=== PATIENT | male | born 2000 | race Two or more races ===

== ENCOUNTER 2024-06-30 19:50 | Inpatient (IN) | payer OTHER ==
[~2024-06-30] VITALS: Ht 175.3 cm; Wt 126.1 kg
--- NOTE | 2024-06-30 20:35 | ED.PDOC ---
General HPI Comments Pt C/O left sided perineal pain x 4 days with swelling. Pt reports he was si tting on a couch that went from a hard surface to a soft surface with the area hurting was half on hard and half on the soft part. Pt reports since then he has started swelling more and causing pain, pt reports pain increases with touch, movement and sitting down. Pt reports being seen in Urgent care yesterday and Ultrasound was ordered but he has not received results. Pt reports pain is now unbareable Chief Complaint: Testicle Pain Time Seen by MD: 19:52 Reviewed notes: Nurses Notes, Medications, Allergies Allergies: Coded Allergies: NO KNOWN ALLERGIES (Unverified , 06/30/24) Home Meds Reported Medications Acetaminophen (Tylenol Extra Strength) 500 Mg Tab, 500 MG PO, TAB 07/01/24 Tramadol Hcl (Tramadol Hcl) 50 Mg Tab, 50 MG PO DAILY, TAB 07/01/24 Information Source: Patient Mode of Arrival: Ambulatory Constitutional: denies: chills, diaphoresis, fatigue, fever, malaise, sweats, weakness, others EENTM: denies: blurred vision, double vision, ear bleeding, ear discharge, ear drainage, ear pain, ear ringing, eye pain, eye redness, hearing loss, mouth pain, mouth swelling, nasal discharge, nose bleeding, nose congestion, nose pain, photophobia, tearing, throat pain, throat swelling, voice changes, others Respiratory: denies: cough, hemoptysis, orthopnea, SOB at rest, shortness of breath, SOB with excertion, stridor, wheezing, others Cardiovascular: denies: chest pain, dizzy spells, diaphoresis, Dyspnea on exertion, edema, irregular heart beat, left arm pain, lightheadedness, palpitations, PND, syncope, others Gastrointestinal: denies: abdomen distended, abdominal pain, blood streaked bowels, constipated, diarrhea, dysphagia, difficulty swallowing, hematemesis, melena, nausea, poor appetite, poor fluid intake, rectal bleeding, rectal pain, vomiting, others Genitourinary: reports: testicle pain; denies: burning, dysuria, flank pain, frequency, hematuria, incontinence, penile discharge, penile sore, pain, testicle swelling, urgency, others Neurological: denies: dizziness, fainting, headache, left sided numbness, left sided weakness, numbness, paresthesia, pre-existing deficit, right sided numbness, right sided weakness, seizure, speech problems, tingling, tremors, weakness, others Musculoskeletal: denies: back pain, gout, joint pain, joint swelling, muscle pain, muscle stiffness, neck pain, others Integumetry: denies: bruises, change in color, change in hair/nails, dryness, laceration, lesions, lumps, rash, wounds, others Allergic/Immunocompromised: denies: Difficulty Healing, Frequent Infections, Hives, Itching, others Hematologic/Lymphatic: denies: anemia, blood clots, easy bleeding, easy bruising, swollen glands, others Endocrine: denies: excessive hunger, excessive sweating, excessive thirst, excessive urination, flushing, intolerance to cold, intolerance to heat, unexplained weight gain, unexplained weight loss, others Psychiatric: denies: anxiety, bipolar disorder, depression, hopeless, panic disorder, schizophrenia, sleepless, suicidal, others Physical Exam General Appearance: No Apparent Distress, Normal HEENT: Pharynx Normal Neck: Full Range of Motion, Non-Tender Respiratory: Lungs Clear, No Respiratory Distress, Normal Breath Sounds Cardiovascular: No Murmur, Normal Peripheral Pulses, Regular Rate/Rhythm Breast Exam: Deferred Gastrointestinal: Non Tender, Soft Genitalia: Deferred Pelvic: Deferred Rectal: Deferred Extremities: Normal capillary refill, Normal inspection, Normal range of motion, Non-tender, No pedal edema Musculoskeletal : Apperance: Normal Neurologic: Alert, set key driver II-XII nml as Tested, No Motor Deficits, Normal Affect, Normal Mood, No Sensory Deficits Cerebellar Function: Normal Reflexes: Normal Skin: Dry, Normal Color, Warm Lymphatic: No Adenopathy Was a procedure done? Was a procedure done?: No Differential Diagnosis Kidney stone (Female): N/A Kidney stone (Male): Strain, Urolithiasis Penile/Scrotal: Epidiymitis, STD, UTI, Hydrocele, Testicular Torsion X-Ray, Labs, Meds, VS Vital Signs Date Time Temp Pulse Resp B/P (MAP) Pulse Ox O2 Delivery O2 Flow Rate FiO2 07/01/24 01:30 97.7 99 14 151/88 (109) 97 97.7 07/01/24 00:29 99.5 97 21 146/86 (106) 98 99.5 4/5/25 22:27 98.0 111 20 155/90 (111) 98 98.0 06/30/24 20:46 103 14 97 Room Air 06/30/24 20:46 97.6 103 14 147/94 (111) 97 97.6 06/30/24 20:14 97.6 103 14 147/94 (111) 97 97.6 Lab Test 07/01/24 01:07 07/01/24 00:14 06/30/24 21:51 Range/Units Lactic Acid Level 1.0 0.4-2.0 mmol/L White Blood Count 16.2 H 4.4-10.8 10^3/uL Red Blood Count 4.85 4.5-5.90 10^6/uL Hemoglobin 14.5 13.5-17.5 g/dL Hematocrit 42.2 41.0-53.0 % Mean Corpuscular Volume 87.1 80.0-100.0 fL Mean Corpuscular Hemoglobin 29.9 28.0-32.0 pg Mean Corpuscular Hemoglobin Concent 34.4 32.0-36.0 g/dL Red Cell Distribution Width 13.0 11.8-14.3 % Platelet Count 416 140-450 10^3/uL Mean Platelet Volume 7.2 6.9-10.8 fL Neutrophils (%) (Auto) 71.6 37.0-80.0 % Lymphocytes (%) (Auto) 18.8 10.0-50.0 % Monocytes (%) (Auto) 7.9 0.0-12.0 % Eosinophils (%) (Auto) 1.0 0.0-7.0 % Basophils (%) (Auto) 0.7 0.0-2.0 % Neutrophils # (Auto) 11.6 H 1.6-8.6 10 ^3/uL Lymphocytes # (Auto) 3.0 0.4-5.4 10 ^3/uL Monocytes # (Auto) 1.3 0-1.3 10 ^3/uL Eosinophils # (Auto) 0.2 0-0.8 10 ^3/uL Basophils # (Auto) 0.1 0-0.2 10 ^3/uL Nucleated Red Blood Cells 0.0 % Sodium Level 140 136-145 mmol/L Potassium Level 3.7 3.5-5.1 mmol/L Chloride Level 105 98-107 mmol/L Carbon Dioxide Level 23 20-31 mmol/L Anion Gap 12 5-15 Blood Urea Nitrogen 21 9-23 mg/dL Creatinine 1.05 0.700-1.30 mg/dL Glomerular Filtration Rate Calc 102 >90 mL/min BUN/Creatinine Ratio 20.0 10.0-20.0 Serum Glucose 108 H 74-106 mg/dL Calcium Level 9.7 8.7-10.4 mg/dL Total Bilirubin 0.3 0.2-1.0 mg/dL Aspartate Amino Transferase (AST) 32 13-40 U/L Alanine Aminotransferase (ALT) 91 H 7-40 U/L Alkaline Phosphatase 123 H 46-116 U/L Total Protein 7.7 5.7-8.2 g/dL Albumin 4.9 H 3.2-4.8 g/dL Urine Color Yellow Yellow Urine Clarity Clear Clear Urine pH 5.5 5.0-9.0 Urine Specific [place] 1.030 1.001-1.035 Urine Protein Negative Negative Urine Ketones Negative Negative Urine Blood Negative Negative /uL Urine Nitrite Negative Negative Urine Bilirubin Negative Negative Urine Urobilinogen Normal Negative mg/dL Urine Leukocyte Esterase Negative Negative /uL Urine RBC 1 0 - 3 /hpf Urine Microscopic WBC 1 0-3 /HPF Urine Squamous Epithelial Cells None seen <5 /hpf Urine Bacteria None seen None Seen /hpf Urine Glucose Normal Normal mg/dL Current Medications Medications (Trade) Dose Ordered Sig/Jimenez Route Start Time Stop Time Status Last Admin Ketorolac Tromethamine (Toradol Injection) 60 mg ONCE ONCE IM 06/30/24 22:30 06/30/24 22:31 DC 06/30/24 22:30 Acetaminophen/ Hydrocodone Bitart ([place] 5/325MG Tab) 2 tab ONCE ONCE PO 06/30/24 22:30 06/30/24 22:31 DC 06/30/24 22:26 Ceftriaxone Sodium 50 ml @ 100 mls/hr ONCE ONCE IV 07/01/24 01:00 07/01/24 01:29 DC 07/01/24 01:31 Vancomycin HCl 250 ml @ 250 mls/hr ONCE ONCE IV 07/01/24 01:00 07/01/24 01:59 DC 07/01/24 02:03 Sodium Chloride 2,000 ml @ 1,000 mls/hr Q2H ONCE IV 07/01/24 01:00 07/01/24 02:59 DC 07/01/24 01:31 X-Ray, Labs, Meds, VS Comment IMAGING: CT abdomen and pelvis shows large mass possible abscess with anal fistula MEDS: Rocephin 1 g IV piggyback NORCO 10 MG Toradol 60 mg IM LABS: UA within normal limits CBC pending CMP pending PLAN: Patient placed with the hospitalist for admission for possible abscess with anal fistula Consider Surgical consult Pain control Infection, IV antibiotics Time of 1ST Reevaluation: 20:35 Reevaluation 1ST: Unchanged Patient Education/Counseling: Diagnosis, Treatment, Prognosis, Need For Follow Up Family Education/Counseling: No Family Present Departure 1 Departure Time of Disposition: 00:00 Impression: Primary Impression: Anal fistula Additional Impression: Abscess of anal and rectal regions Disposition: ADMITTED INPATIENT Condition: Stable Discharged With: Self Critical Care Note Critical Care Time?: No Stability Stability form required: SAMANTHA Seth Jun 30, 2024 20:35
[2024-06-30 22:08] LABS: Urine Bacteria None Seen /hpf (None Seen)
--- NOTE | 2024-06-30 22:09 | DVH ---
US TESTICULAR ULTRASOUND HISTORY: testicular pain COMPARISON: None FINDINGS: Transverse and longitudinal grayscale and Doppler sonographic images were obtained of the s crotum/testicles. Right testis: Size: 3.3 x 3.2 x 3.4 cm Doppler flow: normal Echogenicity: normal Mass:no Hydrocele:no Epididymis:normal Varicocele: None Other: There is a 3 mm cyst in the right epididymis. Left testis: Size: 4.1 x 2.8 x 2.9 cm Doppler flow: normal Echogenicity: normal Mass:no Hydrocele:no Epididymis:normal Varicocele: None Other:none Incidental finding of a complex hypoechoic structure noted on the left gluteal fold measuring 3.6 x 2 .9 x 3.0 cm. This lesion demonstrates no internal vascularity. IMPRESSION: No sonographic evidence of testicular abnormalities. Complex hypoechoic structure noted in the left g luteal fold which may represent a hematoma versus complex cyst. Attention on follow-up recommended.
[2024-06-30 22:14] LABS: Urine Blood Negative /uL (Negative); Urine Clarity Clear (Clear); Urine Color Yellow (Yellow); Urine Protein, UAD Negative (Negative); Urine Squamous Epithelial Cell None Seen /hpf (<5); Urine Urobilinogen Normal (Negative); Urine WBC 1 /HPF (0-3); Urine pH 5.5 (5.0-9.0)
[2024-06-30] MEDS: HYDROcodone-ACET 5/325MG TAB PO ONE (22:26)
[2024-06-30] MEDS: KETOROLAC TROMETH 60MG/2ML VIAL IM ONE (22:30)
--- NOTE | 2024-06-30 23:54 | DVH ---
Exam: CT PELVIS WO CONTRAST History: Perineum mass Comparison Study: None available at time of dictation. Technique: Multidetector spiral CT of the pelvis was performed from iliac crests to pubic symphysis. 100 cc of intravenous contrast was administered during this examination. Portal venous imaging was obtained. Axial, coronal and sagittal multiplanar reformats were performed by the technologist on a separate workstation. Radiation Dose : CT Dose: CTDI volume is 39 mGy. Dose-length product is 1332 mGy*cm Findings: Visualized bowel: Small bowel and colon are normal in caliber and distribution. The appendix is not visualized; however, no secondary findings of acute appendicitis identified. Ascites: Absent Lymphadenopathy: No pelvic or mesenteric lymphadenopathy. Pelvis Wall and Mesentery: Unremarkable. Vasculature: The visualized abdominal aorta is normal in size and caliber. Abdominal and pelvic vess els demonstrate normal enhancement. Pelvic Organs: Unremarkable Musculoskeletal: No aggressive focal bony lesions, acute fractures or dislocation. Bladder: Unremarkable Left perianal mass measuring 4.2 x 3.3 cm in the axial plane. The inferior extent of this lesion is n ot visualized on this study. IMPRESSION: Left perianal lesion measuring 4.2 x 3.3 cm in the axial plane without complete visualization of the craniocaudal length of lesion. Limited evaluation without IV contrast. This may represent a perianal fistula or possible abscess. END IMPRESSION:
[2024-07-01] VITALS (8 sets, daily range): BP systolic 118–138; BP diastolic 72–98; PULSE 86–115; RESP 14–18; TEMP 97.7–98.7; O2SAT 96–98
[2024-07-01 00:28] LABS: Basophils # (auto) 0.1 10 ^3/uL (0-0.2); Basophils % (auto) 0.7 % (0.0-2.0); Eosinophils # (auto) 0.2 10 ^3/uL (0-0.8); Hematocrit 42.2 % (41.0-53.0); Hemoglobin 14.5 g/dL (13.5-17.5); Lymphocytes % (auto) 18.8 % (10.0-50.0); Mean Corpuscular Hemoglobin 29.9 pg (28.0-32.0); Mean Corpuscular Hgb Conc. 34.4 g/dL (32.0-36.0); Mean Corpuscular Volume 87.1 fL (80.0-100.0); Monocytes # (auto) 1.3 10 ^3/uL (0-1.3); Monocytes % (auto) 7.9 % (0.0-12.0); Neutrophils # (auto) 11.6 10 ^3/uL (1.6-8.6); Neutrophils % (auto) 71.6 % (37.0-80.0); Platelet Count (auto) 416 10^3/uL (140-450); Red Blood Cells 4.85 10^6/uL (4.5-5.90); White Blood Cell 16.2 10^3/uL (4.4-10.8)
[2024-07-01 00:49] LABS: Anion Gap 12 (5-15); Aspartate Aminotransferase 32 U/L (13-40); Blood Urea Nitrogen 21 mg/dL (9-23); Calcium 9.7 mg/dL (8.7-10.4); Carbon Dioxide 23 mmol/L (20-31); Chloride 105 mmol/L (98-107); Potassium 3.7 mmol/L (3.5-5.1); Sodium 140 mmol/L (136-145); Total Protein 7.7 g/dL (5.7-8.2)
[2024-07-01 00:50] LABS: Alanine Aminotransferase 91 U/L (7-40); Albumin 4.9 g/dL (3.2-4.8); Alkaline Phosphatase 123 U/L (46-116); Bilirubin, Total 0.3 mg/dL (0.2-1.0); Glucose 108 mg/dL (74-106)
[2024-07-01] MEDS: SODIUM CHLORIDE 0.9% 2,000 ML IV ONE (01:31)
[2024-07-01] MEDS: cefTRIAXone 1GM/50ML D5W 50 ML IV ONE (01:31)
[2024-07-01] MEDS: VANCOMYCIN 1GM/200ML PM 250 ML IV ONE ×2 (02:03→03:27)
[2024-07-01] MEDS ORDERED: ONDANSETRON HCL 4 MG/2 ML VIAL IV PRN (03:15)
[2024-07-01] MEDS ORDERED: VANCOMYCIN PER PHARMACY 0 MG IV SCH (03:15)
--- NOTE | 2024-07-01 03:42 | DVHHP2 ---
History of Present Illness Reason for Visit: Abscess History of Present Illness 24-year-old male presents for evaluation of left buttocks abscess. Patient states having a four day history of developing a lump to his left buttocks. He states and has become more swollen and tender. He reports intermittent chills. No drainage noted. No other acute complaints. Past Medical History Denies Past Surgical History Denies Family History Noncontributory Smoke: No ALCOHOL: none Drugs: None Lives: with Family Review of Systems Review of Systems Review of systems are currently negative otherwise dressing HPI. Allergies: Coded Allergies: NO KNOWN ALLERGIES (Unverified , 06/30/24) Medications Current Medications Medications Dose Ordered Sig/Jimenez Route Start Time Stop Time Status Last Admin Dose Admin Ceftriaxone Sodium 50 ml @ 100 mls/hr DAILY@09 IV 07/01/24 09:00 Vancomycin HCl 0 ml @ 0 mls/hr UD IV 07/01/24 03:15 UNV Acetaminophen/ Hydrocodone Bitart 1 tab Q4HP PRN PO 07/01/24 03:15 Temazepam 15 mg QHSP PRN PO 07/01/24 03:15 Ondansetron HCl 4 mg Q4HP PRN IV 07/01/24 03:15 Acetaminophen 650 mg Q6HP PRN PO 07/01/24 03:15 Morphine Sulfate 2 mg Q6HPRN PRN IV 07/01/24 03:15 Exam Vital Signs Vital Signs Date Time Temp Pulse Resp B/P (MAP) Pulse Ox O2 Delivery O2 Flow Rate FiO2 07/01/24 01:40 99 14 97 Room Air* 0 21 07/01/24 01:30 97.7 151/88 (109) 97.7 Exam Gen: 24-year-old male in mild distress, morbidly obese Skin: Warm, dry, normal color and texture, left perianal abscess tender to touch HEENT: Normocephalic atraumatic, mucous membranes moist and pink. Neck: Cervical and supraclavicular nodes normal without enlargement, trachea is midline, thyroid gland is normal without masses. Pulmonary: Clear to auscultation and percussion bilaterally. Cardiac: Regular rate and rhythm. No murmur Abdomen: Soft, nontender, nondistended, bowel sounds present all 4 quadrants, no guarding, no rigidity, no organomegaly. Extremities: No cyanosis, clubbing, no edema Neuro: Cranial nerves II through XII grossly intact, normal affect and speech, no focal motor deficits. Labs/Xrays ORDERING PHYSICIAN: SAMANTHA MEJIA PROCEDURE(s): PL2CT - PELVIS WO CONTRAST REASON: Perineum mass ORDER NUMBER(s): [id number], ACCESSION NUMBER(s): [id number] Exam: CT PELVIS WO CONTRAST History: Perineum mass Comparison Study: None available at time of dictation. Technique: Multidetector spiral CT of the pelvis was performed from iliac crests to pubic symphysis. 100 cc of intravenous contrast was administered during this examination. Portal venous imaging was obtained. Axial, coronal and sagittal multiplanar reformats were performed by the technologist on a separate workstation. Radiation Dose : CT Dose: CTDI volume is 39 mGy. Dose-length product is 1332 mGy*cm Findings: Visualized bowel: Small bowel and colon are normal in caliber and distribution. The appendix is not visualized; however, no secondary findings of acute appendicitis identified. Ascites: Absent Lymphadenopathy: No pelvic or mesenteric lymphadenopathy. Pelvis Wall and Mesentery: Unremarkable. Vasculature: The visualized abdominal aorta is normal in size and caliber. Abdominal and pelvic vessels demonstrate normal enhancement. Pelvic Organs: Unremarkable Musculoskeletal: No aggressive focal bony lesions, acute fractures or dislocation. Bladder: Unremarkable Left perianal mass measuring 4.2 x 3.3 cm in the axial plane. The inferior extent of this lesion is not visualized on this study. IMPRESSION: Left perianal lesion measuring 4.2 x 3.3 cm in the axial plane without complete visualization of the craniocaudal length of lesion. Limited evaluation without IV contrast. This may represent a perianal fistula or possible abscess. END IMPRESSION: Labs Test 07/01/24 01:07 07/01/24 00:14 06/30/24 21:51 Range/Units Lactic Acid Level 1.0 0.4-2.0 mmol/L White Blood Count 16.2 H 4.4-10.8 10^3/uL Red Blood Count 4.85 4.5-5.90 10^6/uL Hemoglobin 14.5 13.5-17.5 g/dL Hematocrit 42.2 41.0-53.0 % Mean Corpuscular Volume 87.1 80.0-100.0 fL Mean Corpuscular Hemoglobin 29.9 28.0-32.0 pg Mean Corpuscular Hemoglobin Concent 34.4 32.0-36.0 g/dL Red Cell Distribution Width 13.0 11.8-14.3 % Platelet Count 416 140-450 10^3/uL Mean Platelet Volume 7.2 6.9-10.8 fL Neutrophils (%) (Auto) 71.6 37.0-80.0 % Lymphocytes (%) (Auto) 18.8 10.0-50.0 % Monocytes (%) (Auto) 7.9 0.0-12.0 % Eosinophils (%) (Auto) 1.0 0.0-7.0 % Basophils (%) (Auto) 0.7 0.0-2.0 % Neutrophils # (Auto) 11.6 H 1.6-8.6 10 ^3/uL Lymphocytes # (Auto) 3.0 0.4-5.4 10 ^3/uL Monocytes # (Auto) 1.3 0-1.3 10 ^3/uL Eosinophils # (Auto) 0.2 0-0.8 10 ^3/uL Basophils # (Auto) 0.1 0-0.2 10 ^3/uL Nucleated Red Blood Cells 0.0 % Sodium Level 140 136-145 mmol/L Potassium Level 3.7 3.5-5.1 mmol/L Chloride Level 105 98-107 mmol/L Carbon Dioxide Level 23 20-31 mmol/L Anion Gap 12 5-15 Blood Urea Nitrogen 21 9-23 mg/dL Creatinine 1.05 0.700-1.30 mg/dL Glomerular Filtration Rate Calc 102 >90 mL/min BUN/Creatinine Ratio 20.0 10.0-20.0 Serum Glucose 108 H 74-106 mg/dL Calcium Level 9.7 8.7-10.4 mg/dL Total Bilirubin 0.3 0.2-1.0 mg/dL Aspartate Amino Transferase (AST) 32 13-40 U/L Alanine Aminotransferase (ALT) 91 H 7-40 U/L Alkaline Phosphatase 123 H 46-116 U/L Total Protein 7.7 5.7-8.2 g/dL Albumin 4.9 H 3.2-4.8 g/dL Urine Color Yellow Yellow Urine Clarity Clear Clear Urine pH 5.5 5.0-9.0 Urine Specific [place] 1.030 1.001-1.035 Urine Protein Negative Negative Urine Ketones Negative Negative Urine Blood Negative Negative /uL Urine Nitrite Negative Negative Urine Bilirubin Negative Negative Urine Urobilinogen Normal Negative mg/dL Urine Leukocyte Esterase Negative Negative /uL Urine RBC 1 0 - 3 /hpf Urine Microscopic WBC 1 0-3 /HPF Urine Squamous Epithelial Cells None seen <5 /hpf Urine Bacteria None seen None Seen /hpf Urine Glucose Normal Normal mg/dL Assessment/Plan Assessment/Plan Assessment Perianal abscess Leukocytosis Mild transaminitis Plan Admit the patient to [facility] to the hospitalist Surgical consultation Pain management Rocephin/vancomycin Monitor LFTs Continue treatment per orders. Plan discussed with: Patient My Orders Orders - GRISELDA COMER Procedure Category Date Status Time Ceftriaxone 1gm/50ml PHA 07/01/24 In Process D5w (Rocephin) 09:00 Vancomycin Per PHA 07/01/24 Pending Pharmacy 03:15 Basic Metabolic Panel LAB 07/02/24 Verified 04:00 Hydrocodone-Acet PHA 07/01/24 In Process 5/325mg Tab ([place] 03:15 Temazepam (Restoril) PHA 07/01/24 In Process 03:15 Ondansetron Hcl PHA 07/01/24 In Process (Zofran) 03:15 Complete Blood Count LAB 07/02/24 Verified 04:00 Condition: Stable MATHEW 07/01/24 In Process 03:02 Acetaminophen Tablet PHA 07/01/24 In Process (Tylenol Tablet) 03:15 Bedrest With Bathroom MATHEW 07/01/24 In Process Privileg 03:02 Morphine Sulfate PHA 07/01/24 In Process Injection 03:15 Regular Diet DIET 07/01/24 Transmitted Breakfast Vancomycin 1gm/250ml PHA 07/01/24 In Process Kit 03:15 Date of Service: Jul 01, 2024 Billing Provider: GRISELDA COMER Common Visit Codes: [id number] INP/OBS CARE (MOD) GRISELDA COMER Jul 01, 2024 03:42
[2024-07-01] MEDS: HYDROcodone-ACET 5/325MG TAB PO PRN (05:10)
[2024-07-01] MEDS ORDERED: ACET-1304 PO (05:53)
[2024-07-01] MEDS ORDERED: TRAM50TA2 PO (05:53)
[2024-07-01] MEDS: cefTRIAXone 1GM/50ML D5W 50 ML IV SCH (08:13)
[2024-07-01] MEDS: MORPHINE SULFATE INJ 2 MG/ml SYRG IV PRN (08:15)
[2024-07-01] MEDS: CLINDAMYCIN 600MG IV 50 ML IV ONE (11:38)
[2024-07-01] MEDS: IOHEXOL 300 MG/ML 100ML BOTTLE IJ ONE (12:17)
--- NOTE | 2024-07-01 12:33 | DVHINCON2 ---
Consultation - Surgical Date Seen: Jul 01, 2024 Referring Physician Reason for Consultation perirectal abscess Past Medical/Surgical History Past Medical/Surgical History none Family and Social History Family and Social History denies a/t/d; no family h/o inflammatory bowel dz Allergies and medications Allergies: Coded Allergies: NO KNOWN ALLERGIES (Unverified , 06/30/24) Home Meds Reported Medications Acetaminophen (Tylenol Extra Strength) 500 Mg Tab, 500 MG PO, TAB 07/01/24 Tramadol Hcl (Tramadol Hcl) 50 Mg Tab, 50 MG PO DAILY, TAB 07/01/24 Current Medications Current Medications Medications (Trade) Dose Ordered Sig/Jimenez Route PRN Reason Start Time Stop Time Status Last Admin Docusate Sodium (Colace Capsule) 200 mg BID PO 07/01/24 22:00 07/02/24 09:45 Review of systems Review of Systems: HEENT:Normal, CVS:Normal, CVS:Abnormal, RESPIRATORY:Normal, GI:Normal, GI:Abnormal (perirectal pain), :Normal, MSK:Normal, NEURO:Normal Examination Vital signs Vital Signs Date Time Temp Pulse Resp B/P (MAP) Pulse Ox O2 Delivery O2 Flow Rate FiO2 07/01/24 08:34 97.8 90 17 134/84 (101) 97 97.8 07/01/24 05:00 Room Air* 0 21 Medications Current Medications Medications (Trade) Dose Ordered Sig/Jimenez Route PRN Reason Start Time Stop Time Status Last Admin Ceftriaxone Sodium 50 ml @ 100 mls/hr DAILY@09 IV 07/01/24 09:00 07/01/24 08:13 Vancomycin HCl 0 ml @ 0 mls/hr UD IV 07/01/24 03:15 07/01/24 10:11 DC Acetaminophen/ Hydrocodone Bitart ([place] 5/325MG Tab) 1 tab Q4HP PRN PO MODERATE PAIN (4-6 PAIN SCALE) 07/01/24 03:15 07/01/24 11:34 Temazepam (Restoril) 15 mg QHSP PRN PO FOR INSOMNIA 07/01/24 03:15 Ondansetron HCl (Zofran) 4 mg Q4HP PRN IV NAUSEA / VOMITING 07/01/24 03:15 Acetaminophen (Tylenol Tablet) 650 mg Q6HP PRN PO PAIN SCALE 1-3 OR TEMP>100.4 07/01/24 03:15 Morphine Sulfate 2 mg Q6HPRN PRN IV SEVERE PAIN (7-10 PAIN SCALE) 07/01/24 03:15 07/01/24 08:15 Clindamycin Phosphate 50 ml @ 50 mls/hr Q8HR IV 07/01/24 14:00 Laboratory Labs Test 07/01/24 01:07 07/01/24 00:14 06/30/24 21:51 Range/Units Lactic Acid Level 1.0 0.4-2.0 mmol/L White Blood Count 16.2 H 4.4-10.8 10^3/uL Red Blood Count 4.85 4.5-5.90 10^6/uL Hemoglobin 14.5 13.5-17.5 g/dL Hematocrit 42.2 41.0-53.0 % Mean Corpuscular Volume 87.1 80.0-100.0 fL Mean Corpuscular Hemoglobin 29.9 28.0-32.0 pg Mean Corpuscular Hemoglobin Concent 34.4 32.0-36.0 g/dL Red Cell Distribution Width 13.0 11.8-14.3 % Platelet Count 416 140-450 10^3/uL Mean Platelet Volume 7.2 6.9-10.8 fL Neutrophils (%) (Auto) 71.6 37.0-80.0 % Lymphocytes (%) (Auto) 18.8 10.0-50.0 % Monocytes (%) (Auto) 7.9 0.0-12.0 % Eosinophils (%) (Auto) 1.0 0.0-7.0 % Basophils (%) (Auto) 0.7 0.0-2.0 % Neutrophils # (Auto) 11.6 H 1.6-8.6 10 ^3/uL Lymphocytes # (Auto) 3.0 0.4-5.4 10 ^3/uL Monocytes # (Auto) 1.3 0-1.3 10 ^3/uL Eosinophils # (Auto) 0.2 0-0.8 10 ^3/uL Basophils # (Auto) 0.1 0-0.2 10 ^3/uL Nucleated Red Blood Cells 0.0 % Sodium Level 140 136-145 mmol/L Potassium Level 3.7 3.5-5.1 mmol/L Chloride Level 105 98-107 mmol/L Carbon Dioxide Level 23 20-31 mmol/L Anion Gap 12 5-15 Blood Urea Nitrogen 21 9-23 mg/dL Creatinine 1.05 0.700-1.30 mg/dL Glomerular Filtration Rate Calc 102 >90 mL/min BUN/Creatinine Ratio 20.0 10.0-20.0 Serum Glucose 108 H 74-106 mg/dL Calcium Level 9.7 8.7-10.4 mg/dL Total Bilirubin 0.3 0.2-1.0 mg/dL Aspartate Amino Transferase (AST) 32 13-40 U/L Alanine Aminotransferase (ALT) 91 H 7-40 U/L Alkaline Phosphatase 123 H 46-116 U/L Total Protein 7.7 5.7-8.2 g/dL Albumin 4.9 H 3.2-4.8 g/dL Urine Color Yellow Yellow Urine Clarity Clear Clear Urine pH 5.5 5.0-9.0 Urine Specific [place] 1.030 1.001-1.035 Urine Protein Negative Negative Urine Ketones Negative Negative Urine Blood Negative Negative /uL Urine Nitrite Negative Negative Urine Bilirubin Negative Negative Urine Urobilinogen Normal Negative mg/dL Urine Leukocyte Esterase Negative Negative /uL Urine RBC 1 0 - 3 /hpf Urine Microscopic WBC 1 0-3 /HPF Urine Squamous Epithelial Cells None seen <5 /hpf Urine Bacteria None seen None Seen /hpf Urine Glucose Normal Normal mg/dL Examination: GENERAL:Normal, HEENT:Normal, NECK:Normal, LUNGS:Normal, CVS:Normal, ABDOMEN:Normal, MSK:Normal, SKIN:Abnormal (left sided vertical area of induration along gluteal cleft w central fluctance, tender, overlying skin erthematous and warm to touch), NEURO:Normal, :Normal Problem List/Assessment/Plan Problems: (1) Abscess of anal and rectal regions (2) Anal fistula (3) Morbid obesity with BMI of 40.0-44.9, adult Assessment and Plan 26M with morbid obesity BMI 45 who presented with 3-4 days of left sided perirectal/gluteal pain. Denies h/o crohns/UC, no rectal trauma, work requires him to sit for several hours Afebrile, WBC 16, left-sided indurated vertical area along gluteal cleft with central fluctuance, rectal exam negative. Last PO was around 9am. CT shows superficial stranding and inflammatory changes with central area of developing abscess - Perirectal abscess - possible fistula discussed findings in depth with patient and anesthesiologist conductor freight given pt ate this morning, not candidate for general anesthesia, discussed doing I&D w local vs EUA and more extensive I&D when cleared for anesthesia, pt agreeable to proceed w procedure with local anesthesia only and understands he may need additional procedure if unable to tolerate procedure w local only cont ABX cultures to be sent after I&D bowel regimen sitz baths multimodal anesthesia Plan discussed with Plan discussed with: Patient Visit Coding Surgery Date of Service if different f: Jul 01, 2024 Billing Provider: JUAN F WHITE MD Surgery Visit Codes: 64058 - INP CONSULT <55 MIN JUAN F WHITE MD Jul 01, 2024 12:33
--- NOTE | 2024-07-01 12:33 | DVHOP2 ---
Operative Report - 2 Report Details Date: 07/01/24 Preop Diagnosis: perirectal abscess Postop Diagnosis: perirectal abscess Surgeon: Juan F De La Paz MD Anesthesiologist: Dr Lomeli Anesthesia: Local Consent: The patient was informed of the risks and benefits of the procedure. These include but are not limited to complications of anesthesia, postoperative infection, incomplete relief of symptoms, recurrence of symptoms, damage to blood vessels, nerves and tendons, deep venous thrombosis, pulmonary embolism and possible need for repeat surgery in the future. Estimated Blood Loss: minimal Name of Procedure Performed incision and drainage of perirectal abscess Procedure Details Procedure Details: After consent confirmed patient placed on his side with left side upwards. Time out performed with all present and in agreement. Surgical site prepped and draped. 3 grams of ancef administered and patient recieved clindamycin prior to being taken to the OR. Local anesthesia obtained with 10cc of quarter percent Ma rcaine. Directly over area of greatest fluctuance a incision was made with 11 blade. Using hemostat the tissue was probed and loculations broken up. Significant serous inflammatory fluid was evacuated as well as some purulent drainage. Cultures were obtained. Next using an 11 blade an additional counter incision was made to drain the upper portion of the abscess. This was also prob ed with a hemostat and some additional purulent fluid evacuated. Both incision sites were than irrigated with antibiotic saline diluted solution. The site was than dried and both incision sites were packed with 1/4 inch iodoform packing. This was covered with ABD dressing and kept in position using mesh panties. All needle, instrument and sponge counts correct. Patient tolerated procedure well, and transferred to his floor bed directly from OR. No intra-operative complications. Specimen: abscess cultures Condition Good Disposition [facility] JUAN F DE LA PAZ MD Jul 01, 2024 12:33
--- NOTE | 2024-07-01 12:59 | DVH ---
Procedure: CT PELVIS WITH CONTRAST ONLY 07/01/2024 12:03 PM Indication: GLUTEAL LESION Comparison Study: None Technique: Axial images were obtained and reformatted in coronal and sagittal planes. All CT scans at this medical facility are performed using dose modulation techniques as appropriate to a performed e xam including the following: Automated exposure control was utilized; adjustment of the MA and/or KV according to patient size; and use of iterative reconstruction technique. CT Dose: CTDI volume is 26. 1 mGy. Dose-length product is 1396.61 mGy*cm FINDINGS: Left medial gluteal, perianal abscess noted measuring 6.1 cm in craniocaudal, 3 cm in transverse and 5.2 cm in AP containing fluid and air with moderate surrounding inflammation. No inguinal or pelvic l ymphadenopathy. The osseous structures are intact. IMPRESSION: 1. A 6.1 x 5.2 cm left perianal abscess noted.
[2024-07-01] MEDS: ceFAZolin 2 GM/D5W100ml 100 ML IV ONE (13:23)
[2024-07-01] MEDS: LIDOCAINE W/ EPINEPHRINE 1% 20ML VIAL ONE (13:23)
[2024-07-01] MEDS: fentaNYL CITRATE 100 MCG/2 ML VL ONE (13:49)
[2024-07-01] MEDS: KETOROLAC TROMETH 30 MG/ML 1ML VIAL ONE (13:49)
--- NOTE | 2024-07-01 14:14 | POSTOP ---
Post-Operative Note Post-Operative Note Preop Diagnosis perirectal abscess Postop Diagnosis: perirectal abscess Operation performed incision and drainage of perirectal abscess Anesthesia: Local Anesthesiologist: Dr Lomeli Surgeon Juan F De La Paz MD Additional Remarks remove packing on Tuesday morning, 07/02/2024 take stool softener to avoid constipation sitz baths twice daily antibiotics x7 days followup in surgical clinic in 1 week Date 07/01/24 Time 14:13 JUAN F DE LA PAZ MD Jul 01, 2024 14:14
[2024-07-01] MEDS ORDERED: HYDROmorphone HCL 2 MG/ML VL/or syr IV PRN (14:15)
[2024-07-01] MEDS ORDERED: ceFAZolin 1GM VL ONE ×2 (14:16→14:23)
[2024-07-01] MEDS ORDERED: fentaNYL CITRATE 100 MCG/2 ML VL ONE (14:35)
[2024-07-01] MEDS: ONDANSETRON HCL 4 MG/2 ML VIAL IV ONE (14:42)
--- NOTE | 2024-07-01 14:53 | DVHPN2 ---
Subjective PAIN IN THE GLUTEAL AREA Reviewed: Care Plan, H&P, Labs, Medications, Previous Orders, Radiology Changes from previous H/P or p: No Changes Objective Vitals Vital Signs Date Time Temp Pulse Resp B/P (MAP) Pulse Ox O2 Delivery O2 Flow Rate FiO2 07/01/24 12:39 98.1 115 18 138/98 (111) 97 98.1 07/01/24 08:00 Room Air* 0 21 Intake/Output Intake and Output 07/01/24 07:00 Intake Total 2300 ml Balance 2300 ml Intake Oral 0 ml IV Total 2300 ml General Appearance: Alert, Oriented X3, Cooperative, mild distress (With gluteal pain) HEENT: Atraumatic Lungs: Clear to auscultation Cardiovascular: Regular rate Medications Current Medications Medications Dose Ordered Sig/Jimenez Route Start Time Stop Time Status Last Admin Dose Admin Ceftriaxone Sodium 50 ml @ 100 mls/hr DAILY@09 IV 07/01/24 09:00 07/01/24 08:13 100 MLS/HR Acetaminophen/ Hydrocodone Bitart 1 tab Q4HP PRN PO 07/01/24 03:15 07/01/24 11:34 1 TAB Temazepam 15 mg QHSP PRN PO 07/01/24 03:15 Ondansetron HCl 4 mg Q4HP PRN IV 07/01/24 03:15 Acetaminophen 650 mg Q6HP PRN PO 07/01/24 03:15 Morphine Sulfate 2 mg Q6HPRN PRN IV 07/01/24 03:15 07/01/24 08:15 2 MG Clindamycin Phosphate 50 ml @ 50 mls/hr Q8HR IV 07/01/24 14:00 Hydromorphone HCl 0.5 mg Q10M PRN IV 07/01/24 14:15 07/01/24 14:56 Docusate Sodium 200 mg BID PO 07/01/24 22:00 Laboratory Results Laboratory Tests 07/01/24 00:14 Chemistry Test 07/01/24 00:14 Albumin 4.9 g/dL (3.2-4.8) H Calcium Level 9.7 mg/dL (8.7-10.4) Total Protein 7.7 g/dL (5.7-8.2) LFT Test 07/01/24 00:14 Alanine Aminotransferase (ALT) 91 U/L (7-40) H Alkaline Phosphatase 123 U/L (46-116) H Aspartate Amino Transferase (AST) 32 U/L (13-40) Total Bilirubin 0.3 mg/dL (0.2-1.0) Urinalysis Test 06/30/24 21:51 Urine Color Yellow (Yellow) Urine Clarity Clear (Clear) Urine pH 5.5 (5.0-9.0) Urine Specific [place] 1.030 (1.001-1.035) Urine Protein Negative (Negative) Urine Ketones Negative (Negative) Urine Blood Negative /uL (Negative) Urine Nitrite Negative (Negative) Urine Bilirubin Negative (Negative) Urine Urobilinogen Normal mg/dL (Negative) Urine Leukocyte Esterase Negative /uL (Negative) Urine RBC 1 /hpf (0 - 3) Urine Microscopic WBC 1 /HPF (0-3) Urine Squamous Epithelial Cells None seen /hpf (<5) Urine Bacteria None seen /hpf (None Seen) Urine Glucose Normal mg/dL (Normal) Assessment/Plan Assessment/Plan Left gluteal abscess/ Morbid obesity with BMI 43.9 Sepsis Plan: Clindamycin IV. Pelvic CT with IV contrast. Surgical consult. Patient going for I and D Plan discussed with: Patient, Other (Mother at bedside) My Orders Orders - TERENCE SANDERSON MD Procedure Category Date Status Time Clindamycin 600mg Iv PHA 07/01/24 In Process (Cleocin Iv) 14:00 * Surgical Consult CONS 07/01/24 Transmitted Pelvis With Contrast CT 07/01/24 Resulted Only 10:10 Date of Service: Jul 01, 2024 Billing Provider: TERENCE SANDERSON MD Common Visit Codes: [id number] INP/OBS CARE(HIGH) TERENCE SANDERSON MD Jul 01, 2024 14:53
[2024-07-01] MEDS: CLINDAMYCIN 600MG IV 50 ML IV SCH (15:36)
[2024-07-01] MEDS: DOCUSATE SOD 100 MG CAP PO SCH (21:49)
[2024-07-02 01:00] VITALS: BP 102/52; PULSE 89; RESP 18; TEMP 98.7; O2SAT 98
[2024-07-02 05:00] VITALS: BP 138/60; PULSE 91; RESP 18; TEMP 98.7; O2SAT 98
[2024-07-02 07:13] LABS: Basophils # (auto) 0.1 10 ^3/uL (0-0.2); Basophils % (auto) 0.4 % (0.0-2.0); Eosinophils # (auto) 0.1 10 ^3/uL (0-0.8); Eosinophils % (auto) 0.4 % (0.0-7.0); Hemoglobin 13.5 g/dL (13.5-17.5); Lymphocytes # (auto) 2.2 10 ^3/uL (0.4-5.4); Lymphocytes % (auto) 13.6 % (10.0-50.0); Mean Corpuscular Hemoglobin 29.9 pg (28.0-32.0); Mean Corpuscular Hgb Conc. 34.7 g/dL (32.0-36.0); Mean Corpuscular Volume 86.1 fL (80.0-100.0); Monocytes # (auto) 1.6 10 ^3/uL (0-1.3); Monocytes % (auto) 10.1 % (0.0-12.0); Neutrophils # (auto) 12.2 10 ^3/uL (1.6-8.6); Neutrophils % (auto) 75.5 % (37.0-80.0); Platelet Count (auto) 357 10^3/uL (140-450); Red Blood Cells 4.53 10^6/uL (4.5-5.90); White Blood Cell 16.1 10^3/uL (4.4-10.8)
[2024-07-02 07:14] LABS: Chloride 102 mmol/L (98-107); Potassium 3.8 mmol/L (3.5-5.1); Sodium 137 mmol/L (136-145)
[2024-07-02 07:15] LABS: Anion Gap 9 (5-15); Calcium 9.6 mg/dL (8.7-10.4); Carbon Dioxide 26 mmol/L (20-31)
[2024-07-02 07:20] LABS: BUN/Creatinine Ratio 12.9 (10.0-20.0); Blood Urea Nitrogen 12 mg/dL (9-23); Glucose 103 mg/dL (74-106)
[2024-07-02 08:00] VITALS: PULSE 74; RESP 17; O2SAT 95
[2024-07-02 13:00] VITALS: BP 130/72; PULSE 91; RESP 18; TEMP 98.5; O2SAT 97
[2024-07-02 20:00] VITALS: O2SAT 97
--- NOTE | 2024-07-02 20:53 | DVHPN2 ---
Subjective having some pain at drainage site Reviewed: Care Plan, H&P, Labs, Medications, Previous Orders, Radiology Changes from previous H/P or p: No Changes Objective Vitals Vital Signs Date Time Temp Pulse Resp B/P (MAP) Pulse Ox O2 Delivery O2 Flow Rate FiO2 07/02/24 20:00 97 Room Air* 0 21 07/02/24 13:00 98.5 91 18 130/72 (91) 98.5 Intake/Output Intake and Output 07/02/24 07:00 Intake Total 900 ml Balance 900 ml Intake Oral 700 ml IV Total 200 ml # Voids 17 General Appearance: Alert, Oriented X3, Cooperative, mild distress (With gluteal pain) HEENT: Atraumatic Lungs: Clear to auscultation Cardiovascular: Regular rate Medications Current Medications Medications Dose Ordered Sig/Jimenez Route Start Time Stop Time Status Last Admin Dose Admin Ceftriaxone Sodium 50 ml @ 100 mls/hr DAILY@09 IV 07/01/24 09:00 07/02/24 08:27 100 MLS/HR Acetaminophen/ Hydrocodone Bitart 1 tab Q4HP PRN PO 07/01/24 03:15 07/02/24 17:41 1 TAB Temazepam 15 mg QHSP PRN PO 07/01/24 03:15 Ondansetron HCl 4 mg Q4HP PRN IV 07/01/24 03:15 Acetaminophen 650 mg Q6HP PRN PO 07/01/24 03:15 Morphine Sulfate 2 mg Q6HPRN PRN IV 07/01/24 03:15 07/01/24 21:50 2 MG Clindamycin Phosphate 50 ml @ 50 mls/hr Q8HR IV 07/01/24 14:00 07/02/24 15:19 50 MLS/HR Docusate Sodium 200 mg BID PO 07/01/24 22:00 07/02/24 09:45 200 MG Laboratory Results Laboratory Tests 07/02/24 06:12 Chemistry Test 07/02/24 06:12 Calcium Level 9.6 mg/dL (8.7-10.4) Urinalysis Test 06/30/24 21:51 Urine Color Yellow (Yellow) Urine Clarity Clear (Clear) Urine pH 5.5 (5.0-9.0) Urine Specific [place] 1.030 (1.001-1.035) Urine Protein Negative (Negative) Urine Ketones Negative (Negative) Urine Blood Negative /uL (Negative) Urine Nitrite Negative (Negative) Urine Bilirubin Negative (Negative) Urine Urobilinogen Normal mg/dL (Negative) Urine Leukocyte Esterase Negative /uL (Negative) Urine RBC 1 /hpf (0 - 3) Urine Microscopic WBC 1 /HPF (0-3) Urine Squamous Epithelial Cells None seen /hpf (<5) Urine Bacteria None seen /hpf (None Seen) Urine Glucose Normal mg/dL (Normal) Microbiology Microbiology Date/Time Source Procedure Growth Status 07/01/24 01:07 Blood Blood Culture - Preliminary NO GROWTH AFTER 24 HOURS OF INCUBATION. Resulted Assessment/Plan Assessment/Plan Left gluteal abscess/ Morbid obesity with BMI 43.9 Sepsis Plan: Clindamycin IV s/p I and D 07/01 Pending cx Plan discussed with: Patient Date of Service: Jul 02, 2024 Billing Provider: SHERON WERNER MD Common Visit Codes: [id number] INP/OBS CARE(HIGH) SHERON WERNER MD Jul 02, 2024 20:53
[2024-07-02 21:00] VITALS: BP 129/74; PULSE 100; RESP 16; TEMP 99.2; O2SAT 96
[2024-07-02] MEDS: ACETAMINOPHEN 325 MG TAB PO PRN (21:11)
[2024-07-02] MEDS: TEMAZEPAM 15 MG CAP PO PRN (21:18)
[2024-07-03] VITALS (8 sets, daily range): BP systolic 105–129; BP diastolic 61–78; PULSE 85–101; RESP 17–28; TEMP 99.4–100.6; O2SAT 90–99
--- NOTE | 2024-07-03 14:32 | DVH ---
Exam: MRI PELVIS WO W CONTRAST MRI History: PERIANAL ABSCESS Comparison: CT PELVIS WO CONTRAST on DOS: 06/30/24 Technique: Multisequence multiplanar MRI images were obtained of the pelvis without and with intravenous contras t administration. Findings: Bladder: Unremarkable. Visualized bowel: Visualized portion of the bowel is grossly unremarkable without evidence for obstru ction. Pelvic organs: Unremarkable Lymphadenopathy: No evidence for pelvic lymphadenopathy. Vasculature: There is normal enhancement of the pelvic vasculature. Ascites: Absent. Musculoskeletal: The bone marrow signal is preserved. Left medial gluteal, perianal abscess (extending from approximately the 6 o'clock position) noted alix suring 5.8 x 4.3 x 7.4 cm containing fluid and air with moderate surrounding inflammation. No inguinal or pelvic lymphadenopathy. The osseous structures are intact. IMPRESSION: Left medial gluteal, perianal abscess (extending from approximately the 6 o'clock position) noted alix suring 5.8 x 4.3 x 7.4 cm containing fluid and air with moderate surrounding inflammation.
--- NOTE | 2024-07-03 19:06 | DVHPN2 ---
Subjective having some pain at drainage site Reviewed: Care Plan, H&P, Labs, Medications, Previous Orders, Radiology Changes from previous H/P or p: No Changes Objective Vitals Vital Signs Date Time Temp Pulse Resp B/P (MAP) Pulse Ox O2 Delivery O2 Flow Rate FiO2 07/03/24 16:34 100.0 99 18 120/64 (82) 96 100.0 07/03/24 08:00 Room Air* 0 21 Intake/Output Intake and Output 07/03/24 07:00 Intake Total 995 ml Balance 995 ml Intake Oral 845 ml IV Total 150 ml # Voids 9 # Bowel Movements 2 General Appearance: Alert, Oriented X3, Cooperative, mild distress (With gluteal pain) HEENT: Atraumatic Lungs: Clear to auscultation Cardiovascular: Regular rate Medications Current Medications Medications Dose Ordered Sig/Jimenez Route Start Time Stop Time Status Last Admin Dose Admin Ceftriaxone Sodium 50 ml @ 100 mls/hr DAILY@09 IV 07/01/24 09:00 07/03/24 10:34 100 MLS/HR Acetaminophen/ Hydrocodone Bitart 1 tab Q4HP PRN PO 07/01/24 03:15 07/03/24 08:40 1 TAB Temazepam 15 mg QHSP PRN PO 07/01/24 03:15 07/02/24 21:18 15 MG Ondansetron HCl 4 mg Q4HP PRN IV 07/01/24 03:15 Acetaminophen 650 mg Q6HP PRN PO 07/01/24 03:15 07/03/24 14:44 650 MG Morphine Sulfate 2 mg Q6HPRN PRN IV 07/01/24 03:15 07/01/24 21:50 2 MG Clindamycin Phosphate 50 ml @ 50 mls/hr Q8HR IV 07/01/24 14:00 07/03/24 14:44 50 MLS/HR Docusate Sodium 200 mg BID PO 07/01/24 22:00 07/03/24 08:40 200 MG Laboratory Results Laboratory Tests 07/02/24 06:12 Urinalysis Test 06/30/24 21:51 Urine Color Yellow (Yellow) Urine Clarity Clear (Clear) Urine pH 5.5 (5.0-9.0) Urine Specific [place] 1.030 (1.001-1.035) Urine Protein Negative (Negative) Urine Ketones Negative (Negative) Urine Blood Negative /uL (Negative) Urine Nitrite Negative (Negative) Urine Bilirubin Negative (Negative) Urine Urobilinogen Normal mg/dL (Negative) Urine Leukocyte Esterase Negative /uL (Negative) Urine RBC 1 /hpf (0 - 3) Urine Microscopic WBC 1 /HPF (0-3) Urine Squamous Epithelial Cells None seen /hpf (<5) Urine Bacteria None seen /hpf (None Seen) Urine Glucose Normal mg/dL (Normal) Microbiology Microbiology Date/Time Source Procedure Growth Status 07/01/24 01:07 Blood Blood Culture - Preliminary NO GROWTH AFTER 48 HOURS OF INCUBATION. Resulted Assessment/Plan Assessment/Plan Left gluteal abscess/ Morbid obesity with BMI 43.9 Sepsis Plan: Clindamycin IV s/p I and D 07/01 MRI showed perianal abscess pending surgery eval Pending cx Plan discussed with: Patient Date of Service: Jul 03, 2024 Billing Provider: SHERON WERNER MD Common Visit Codes: [id number] INP/OBS CARE(HIGH) SHERON WERNER MD Jul 03, 2024 19:05
[2024-07-04] VITALS (8 sets, daily range): BP systolic 105–131; BP diastolic 50–68; PULSE 75–101; RESP 16–20; TEMP 98.3–99.7; O2SAT 95–100
[2024-07-04] MEDS: GADOTERATE MEG 10 MMOL/20ml INJ (0.5MMOL/ml) IV ONE (07:31)
[2024-07-04 07:43] LABS: INR 1.03 (0.9-1.15); Partial Thromboplastin Time 32.8 SEC (24.5-34.5); Prothrombin Time 10.9 sec (9.3-11.8)
--- NOTE | 2024-07-04 10:27 | DVHPN2 ---
Subjective Date Seen: Jul 04, 2024 Post op day Post op day: 2 Objective Vitals Vital Sign Date Time Temp Pulse Resp B/P (MAP) Pulse Ox O2 Delivery O2 Flow Rate FiO2 07/04/24 09:00 99.7 75 20 128/63 (84) 100 99.7 07/04/24 08:00 Room Air* 0 21 Total Intake and Output 07/03/24 07/03/24 07/04/24 15:00 23:00 07:00 Intake Total 100 ml 50 ml 850 ml Output Total 450 ml Balance 100 ml -400 ml 850 ml Medications Current Medications Medications Dose Ordered Sig/Jimenez Route Start Time Stop Time Status Last Admin Dose Admin Ceftriaxone Sodium 50 ml @ 100 mls/hr DAILY@09 IV 07/01/24 09:00 07/04/24 09:32 100 MLS/HR Acetaminophen/ Hydrocodone Bitart 1 tab Q4HP PRN PO 07/01/24 03:15 07/03/24 21:34 1 TAB Temazepam 15 mg QHSP PRN PO 07/01/24 03:15 07/02/24 21:18 15 MG Ondansetron HCl 4 mg Q4HP PRN IV 07/01/24 03:15 Acetaminophen 650 mg Q6HP PRN PO 07/01/24 03:15 07/03/24 21:35 650 MG Morphine Sulfate 2 mg Q6HPRN PRN IV 07/01/24 03:15 07/04/24 03:44 2 MG Clindamycin Phosphate 50 ml @ 50 mls/hr Q8HR IV 07/01/24 14:00 07/04/24 05:21 50 MLS/HR Docusate Sodium 200 mg BID PO 07/01/24 22:00 07/04/24 09:32 200 MG General: Normal, Well developed, Well nourished Head/Eyes: Normal ENT: Normal Neck: Normal Abdominal: Normal, Soft, Normal inspection Musculoskeletal: Normal Extremities: Normal Skin: Other (buttock abscess) Labs and Microbiology Laboratory Tests 07/02/24 06:12 Test 07/02/24 06:12 Range/Units Serum Glucose 103 74-106 mg/dL Ass/Plan Labs and/or images reviewed: Labs reviewed by me, Image(s) reviewed by me (DR Denzel Sneed) Problems(with codes): (1) Abscess of anal and rectal regions (2) Morbid obesity with BMI of 40.0-44.9, adult Assessment/Plan review of MRI with Dr. Sneed and physical exam abscess seen on MRI , labs reviewed patient buttock area tender to palpation , no drainage noted patient states very painful with walking and sitting, feels better than when he came to hospital Plan: NPO drainage of abscess tomorrow am continue IV antibiotics Prognosis: Excellent Plan discussed with Dr. Sneed, patient Visit Coding Surgery Date of Service if different f: Jul 04, 2024 Billing Provider: ANDRES SNEED MD Surgery Visit Codes: [id number] INP/OBS CARE(HIGH) MADISON MUSTAFA VALET Jul 04, 2024 10:27
[2024-07-04 11:27] LABS: Basophils # (auto) 0.1 10 ^3/uL (0-0.2); Basophils % (auto) 0.3 % (0.0-2.0); Eosinophils # (auto) 0.1 10 ^3/uL (0-0.8); Eosinophils % (auto) 0.7 % (0.0-7.0); Hemoglobin 14.8 g/dL (13.5-17.5); Lymphocytes # (auto) 1.9 10 ^3/uL (0.4-5.4); Lymphocytes % (auto) 10.9 % (10.0-50.0); Mean Corpuscular Hemoglobin 29.8 pg (28.0-32.0); Mean Corpuscular Hgb Conc. 34.3 g/dL (32.0-36.0); Mean Corpuscular Volume 86.8 fL (80.0-100.0); Monocytes # (auto) 0.8 10 ^3/uL (0-1.3); Monocytes % (auto) 4.8 % (0.0-12.0); Neutrophils # (auto) 14.3 10 ^3/uL (1.6-8.6); Neutrophils % (auto) 83.3 % (37.0-80.0); Nucleated Red Blood Cells % 0.1 %; Platelet Count (auto) 444 10^3/uL (140-450); Red Blood Cells 4.96 10^6/uL (4.5-5.90); Red Cell Distribution Width 12.7 % (11.8-14.3); White Blood Cell 17.2 10^3/uL (4.4-10.8)
--- NOTE | 2024-07-04 19:32 | DVHPN2 ---
Subjective having some pain at drainage site Reviewed: Care Plan, H&P, Labs, Medications, Previous Orders, Radiology Changes from previous H/P or p: No Changes Objective Vitals Vital Signs Date Time Temp Pulse Resp B/P (MAP) Pulse Ox O2 Delivery O2 Flow Rate FiO2 07/04/24 17:00 99.4 76 20 131/57 (81) 96 99.4 07/04/24 08:00 Room Air* 0 21 Intake/Output Intake and Output 07/04/24 07:00 Intake Total 1000 ml Output Total 450 ml Balance 550 ml Intake Oral 800 ml IV Total 200 ml Output Urine Total 450 ml # Voids 5 # Bowel Movements 2 General Appearance: Alert, Oriented X3, Cooperative, mild distress (With gluteal pain) HEENT: Atraumatic Lungs: Clear to auscultation Cardiovascular: Regular rate Medications Current Medications Medications Dose Ordered Sig/Jimenez Route Start Time Stop Time Status Last Admin Dose Admin Ceftriaxone Sodium 50 ml @ 100 mls/hr DAILY@09 IV 07/01/24 09:00 07/04/24 09:32 100 MLS/HR Acetaminophen/ Hydrocodone Bitart 1 tab Q4HP PRN PO 07/01/24 03:15 07/04/24 18:12 1 TAB Temazepam 15 mg QHSP PRN PO 07/01/24 03:15 07/02/24 21:18 15 MG Ondansetron HCl 4 mg Q4HP PRN IV 07/01/24 03:15 Acetaminophen 650 mg Q6HP PRN PO 07/01/24 03:15 07/03/24 21:35 650 MG Morphine Sulfate 2 mg Q6HPRN PRN IV 07/01/24 03:15 07/04/24 03:44 2 MG Clindamycin Phosphate 50 ml @ 50 mls/hr Q8HR IV 07/01/24 14:00 07/04/24 15:38 50 MLS/HR Docusate Sodium 200 mg BID PO 07/01/24 22:00 07/04/24 09:32 200 MG Laboratory Results Laboratory Tests 07/02/24 06:12 07/04/24 10:50 Coagulation Test 07/04/24 06:24 Prothrombin Time 10.9 sec (9.3-11.8) Prothrombin Time INR 1.03 (0.9-1.15) Activated Partial Thromboplast Time 32.8 SEC (24.5-34.5) Urinalysis Test 06/30/24 21:51 Urine Color Yellow (Yellow) Urine Clarity Clear (Clear) Urine pH 5.5 (5.0-9.0) Urine Specific [place] 1.030 (1.001-1.035) Urine Protein Negative (Negative) Urine Ketones Negative (Negative) Urine Blood Negative /uL (Negative) Urine Nitrite Negative (Negative) Urine Bilirubin Negative (Negative) Urine Urobilinogen Normal mg/dL (Negative) Urine Leukocyte Esterase Negative /uL (Negative) Urine RBC 1 /hpf (0 - 3) Urine Microscopic WBC 1 /HPF (0-3) Urine Squamous Epithelial Cells None seen /hpf (<5) Urine Bacteria None seen /hpf (None Seen) Urine Glucose Normal mg/dL (Normal) Microbiology Microbiology Date/Time Source Procedure Growth Status 07/01/24 01:07 Blood Blood Culture - Preliminary NO GROWTH AFTER 72 HOURS OF INCUBATION. Resulted Assessment/Plan Assessment/Plan Left gluteal abscess/ Morbid obesity with BMI 43.9 Sepsis Plan: Clindamycin IV s/p I and D 07/01 MRI showed perianal abscess pending surgery eval Going to OR tomorrow Pending cx Plan discussed with: Patient Date of Service: Jul 04, 2024 Billing Provider: SHERON WERNER MD Common Visit Codes: [id number] INP/OBS CARE(HIGH) SHERON WERNER MD Jul 04, 2024 19:32
[2024-07-05] VITALS (8 sets, daily range): BP systolic 109–141; BP diastolic 57–84; PULSE 73–90; RESP 16–21; TEMP 97.4–98.4; O2SAT 92–99
[2024-07-05] MEDS ORDERED: PROPOFOL 10 MG/ML 20 ML IV ONE (06:54)
[2024-07-05] MEDS ORDERED: fentaNYL CITRATE 100 MCG/2 ML VL ONE ×2 (06:54→07:38)
[2024-07-05] MEDS ORDERED: DexAMETHasone SOD PHOS 10MG/1ML VIAL INJ ONE (07:38)
[2024-07-05] MEDS ORDERED: ONDANSETRON HCL 4 MG/2 ML VIAL ONE (07:38)
--- NOTE | 2024-07-05 08:11 | DVHOP ---
DATE OF SURGERY: 07/05/2024 PREOPERATIVE DIAGNOSIS: Perianal abscess. POSTOPERATIVE DIAGNOSIS: Perianal abscess. SURGEON: Dewey Sneed MD GOL[employer] MAKER: Beto Lazcano NP ANESTHESIA: General endotracheal, Dr. [place]ri[place]. PROCEDURE: Incision and drainage of perianal abscess. DESCRIPTION OF PROCEDURE: Under adequate anesthesia, the patient in lithotomy position, skin shaved, prepped, and draped. An incision was made over the area from where 20 mL of pus was aspirated. The incision measured approximately 2 cm in length through which approximately 200 mL of melodie pus was evacuated. The cavity was digitally explored and the loculations were disrupted. Pulse lavage 1 liter of saline with 2 grams of Ancef was used and following achievement of complete hemostasis, the cavity of the abscess was packed with 0.5-inch iodoform gauze. The patient remained stable throughout the procedure, left the operating room following an accurate needle and sponge count. Family was informed by phone. MD JENIFER Alba/KAITLYNN TID: [id number] RECEIPT: [id number]
[2024-07-05] MEDS: HYDROmorphone HCL 2 MG/ML VL/or syr IV PRN (08:20)
[2024-07-05] MEDS: ACETAMINOPHEN IV 1000 MG/100ML (10MG/ML) IV PRN (08:45)
[2024-07-05] MEDS: MEPERIDINE HCL (25 MG/ML) 1ML VIAL IV PRN (09:10)
--- NOTE | 2024-07-05 11:00 | DVHPN2 ---
Reviewed: Care Plan, H&P, Labs, Medications, Previous Orders, Radiology Changes from previous H/P or p: No Changes Objective Vitals Vital Signs Date Time Temp Pulse Resp B/P (MAP) Pulse Ox O2 Delivery O2 Flow Rate FiO2 07/05/24 09:27 92 20 140/83 (102) 94 07/05/24 08:12 Room Air 0 07/05/24 08:12 96 07/05/24 08:12 98.3 98.3 Intake/Output Intake and Output 07/05/24 07:00 Intake Total 1620 ml Balance 1620 ml Intake Oral 1570 ml IV Total 50 ml # Voids 9 # Bowel Movements 2 General Appearance: Alert, Oriented X3, Cooperative, mild distress (With gluteal pain) HEENT: Atraumatic Lungs: Clear to auscultation Cardiovascular: Regular rate Medications Current Medications Medications Dose Ordered Sig/Jimenez Route Start Time Stop Time Status Last Admin Dose Admin Ceftriaxone Sodium 50 ml @ 100 mls/hr DAILY@09 IV 07/01/24 09:00 07/05/24 10:05 100 MLS/HR Acetaminophen/ Hydrocodone Bitart 1 tab Q4HP PRN PO 07/01/24 03:15 07/05/24 04:14 1 TAB Temazepam 15 mg QHSP PRN PO 07/01/24 03:15 07/02/24 21:18 15 MG Ondansetron HCl 4 mg Q4HP PRN IV 07/01/24 03:15 Acetaminophen 650 mg Q6HP PRN PO 07/01/24 03:15 07/03/24 21:35 650 MG Morphine Sulfate 2 mg Q6HPRN PRN IV 07/01/24 03:15 07/05/24 02:08 2 MG Clindamycin Phosphate 50 ml @ 50 mls/hr Q8HR IV 07/01/24 14:00 07/05/24 06:17 50 MLS/HR Docusate Sodium 200 mg BID PO 07/01/24 22:00 07/05/24 10:05 200 MG Hydromorphone HCl 0.5 mg Q10M PRN IV 07/05/24 08:15 07/05/24 13:00 07/05/24 08:55 0.5 MG Meperidine HCl 25 mg Q10M PRN IV 07/05/24 08:15 07/05/24 12:00 07/05/24 09:10 25 MG Laboratory Results Laboratory Tests 07/02/24 06:12 07/04/24 10:50 Urinalysis Test 06/30/24 21:51 Urine Color Yellow (Yellow) Urine Clarity Clear (Clear) Urine pH 5.5 (5.0-9.0) Urine Specific [place] 1.030 (1.001-1.035) Urine Protein Negative (Negative) Urine Ketones Negative (Negative) Urine Blood Negative /uL (Negative) Urine Nitrite Negative (Negative) Urine Bilirubin Negative (Negative) Urine Urobilinogen Normal mg/dL (Negative) Urine Leukocyte Esterase Negative /uL (Negative) Urine RBC 1 /hpf (0 - 3) Urine Microscopic WBC 1 /HPF (0-3) Urine Squamous Epithelial Cells None seen /hpf (<5) Urine Bacteria None seen /hpf (None Seen) Urine Glucose Normal mg/dL (Normal) Microbiology Microbiology Date/Time Source Procedure Growth Status 07/01/24 01:07 Blood Blood Culture - Preliminary NO GROWTH AFTER 72 HOURS OF INCUBATION. Resulted Labs and/or images reviewed: Labs reviewed by me, Image(s) reviewed by me Assessment/Plan Assessment/Plan Left gluteal abscess status post I&D by Dr De La Paz on 07/01/2024 and on 07/05/[address] Sneed Morbid obesity with BMI 43.9 Sepsis: Continue Rocephin and clindamycin Plan discussed with: Patient Date of Service: Jul 05, 2024 Billing Provider: YOUNG MOREL MD Common Visit Codes: [id number] INP/OBS CARE(HIGH) YOUNG MOREL MD Jul 05, 2024 11:00
[2024-07-05] MEDS: SUCCINYLCHOLINE CHLORIDE 20 MG/ML 10ML VIAL IV ONE (12:17)
[2024-07-05] MEDS: LIDOCAINE W/ EPINEPHRINE 1% 20ML VIAL ONE (12:17)
[2024-07-05] MEDS: MEPERIDINE HCL (50 MG/ML) 1 ML VIAL ONE (12:18)
[2024-07-05] MEDS: ACETAMINOPHEN IV 100 ML IV ONE (12:18)
[2024-07-05] MEDS: HYDROmorphone HCL 2 MG/ML VL/or syr ONE (12:18)
[2024-07-05] MEDS: ceFAZolin 1GM VL ONE (12:18)
[2024-07-05] MEDS: BUPIVACAINE HCL 0.25% P/F 10 ML VIAL ONE (12:18)
[2024-07-06 01:00] VITALS: BP 126/70; PULSE 61; RESP 16; TEMP 98.1; O2SAT 98
[2024-07-06 05:00] VITALS: BP 125/71; PULSE 58; RESP 18; TEMP 97.7; O2SAT 95
[2024-07-06 08:46] VITALS: BP 110/68; PULSE 63; RESP 20; TEMP 97.5; O2SAT 98
--- NOTE | 2024-07-06 09:47 | DVHPN2 ---
Reviewed: Care Plan, H&P, Labs, Medications, Previous Orders, Radiology Changes from previous H/P or p: No Changes Objective Vitals Vital Signs Date Time Temp Pulse Resp B/P (MAP) Pulse Ox O2 Delivery O2 Flow Rate FiO2 07/06/24 08:46 97.5 63 20 110/68 (82) 98 97.5 07/05/24 20:00 Room Air* 0 21 Intake/Output Intake and Output 07/06/24 07:00 Intake Total 1650 ml Balance 1650 ml Intake Oral 1400 ml IV Total 250 ml # Voids 8 General Appearance: Alert, Oriented X3, Cooperative, mild distress (With gluteal pain) HEENT: Atraumatic Lungs: Clear to auscultation Cardiovascular: Regular rate Medications Current Medications Medications Dose Ordered Sig/Jimenez Route Start Time Stop Time Status Last Admin Dose Admin Ceftriaxone Sodium 50 ml @ 100 mls/hr DAILY@09 IV 07/01/24 09:00 07/05/24 10:05 100 MLS/HR Acetaminophen/ Hydrocodone Bitart 1 tab Q4HP PRN PO 07/01/24 03:15 07/06/24 06:03 1 TAB Temazepam 15 mg QHSP PRN PO 07/01/24 03:15 07/02/24 21:18 15 MG Ondansetron HCl 4 mg Q4HP PRN IV 07/01/24 03:15 Acetaminophen 650 mg Q6HP PRN PO 07/01/24 03:15 07/03/24 21:35 650 MG Morphine Sulfate 2 mg Q6HPRN PRN IV 07/01/24 03:15 07/05/24 02:08 2 MG Clindamycin Phosphate 50 ml @ 50 mls/hr Q8HR IV 07/01/24 14:00 07/06/24 05:55 50 MLS/HR Docusate Sodium 200 mg BID PO 07/01/24 22:00 07/05/24 21:45 200 MG Laboratory Results Laboratory Tests 07/02/24 06:12 07/04/24 10:50 Urinalysis Test 06/30/24 21:51 Urine Color Yellow (Yellow) Urine Clarity Clear (Clear) Urine pH 5.5 (5.0-9.0) Urine Specific [place] 1.030 (1.001-1.035) Urine Protein Negative (Negative) Urine Ketones Negative (Negative) Urine Blood Negative /uL (Negative) Urine Nitrite Negative (Negative) Urine Bilirubin Negative (Negative) Urine Urobilinogen Normal mg/dL (Negative) Urine Leukocyte Esterase Negative /uL (Negative) Urine RBC 1 /hpf (0 - 3) Urine Microscopic WBC 1 /HPF (0-3) Urine Squamous Epithelial Cells None seen /hpf (<5) Urine Bacteria None seen /hpf (None Seen) Urine Glucose Normal mg/dL (Normal) Microbiology Microbiology Date/Time Source Procedure Growth Status 07/05/24 07:50 Other Abscess Gram Stain Pending Resulted 07/05/24 07:50 Other Abscess Anaerobic Culture - Preliminary Resulted 07/05/24 07:50 Other Abscess Aerobic Culture Pending Resulted 07/01/24 01:07 Blood Blood Culture - Final NO GROWTH AFTER 5 DAYS OF INCUBATION. Complete Labs and/or images reviewed: Labs reviewed by me, Image(s) reviewed by me Assessment/Plan Assessment/Plan Left gluteal abscess status post I&D by Dr De La Paz on 07/01/2024 and on 07/05/[address] Sneed, wound culture result pending Morbid obesity with BMI 43.9 Sepsis: Continue Rocephin and clindamycin Plan discussed with: Patient Date of Service: Jul 06, 2024 Billing Provider: YOUNG MOREL MD Common Visit Codes: [id number] INP/OBS CARE(HIGH) YOUNG MOREL MD Jul 06, 2024 09:47
[2024-07-06 11:46] LABS: Basophils # (auto) 0.1 10 ^3/uL (0-0.2); Basophils % (auto) 0.6 % (0.0-2.0); Eosinophils # (auto) 0.2 10 ^3/uL (0-0.8); Eosinophils % (auto) 1.3 % (0.0-7.0); Hemoglobin 14.7 g/dL (13.5-17.5); Lymphocytes # (auto) 2.7 10 ^3/uL (0.4-5.4); Lymphocytes % (auto) 22.7 % (10.0-50.0); Mean Corpuscular Hemoglobin 29.6 pg (28.0-32.0); Mean Corpuscular Hgb Conc. 34.3 g/dL (32.0-36.0); Mean Corpuscular Volume 86.3 fL (80.0-100.0); Monocytes # (auto) 0.9 10 ^3/uL (0-1.3); Neutrophils % (auto) 67.4 % (37.0-80.0); Nucleated Red Blood Cells % 0.1 %; Platelet Count (auto) 445 10^3/uL (140-450); Red Blood Cells 4.98 10^6/uL (4.5-5.90); Red Cell Distribution Width 12.8 % (11.8-14.3); White Blood Cell 11.8 10^3/uL (4.4-10.8)
[2024-07-06 12:50] VITALS: BP 129/73; PULSE 77; RESP 18; TEMP 97.6; O2SAT 96
[2024-07-06 16:37] VITALS: BP 126/70; PULSE 76; RESP 19; TEMP 97.7; O2SAT 97
[2024-07-06 21:00] VITALS: BP 117/72; PULSE 85; RESP 19; TEMP 97.8; O2SAT 97
[2024-07-07 01:00] VITALS: BP 118/65; PULSE 70; RESP 18; TEMP 97.7; O2SAT 97
[2024-07-07 05:00] VITALS: BP 104/56; PULSE 57; RESP 18; TEMP 97.6; O2SAT 98
--- NOTE | 2024-07-07 08:32 | DVHPN2 ---
Reviewed: Care Plan, H&P, Labs, Medications, Previous Orders, Radiology Changes from previous H/P or p: No Changes Objective Vitals Vital Signs Date Time Temp Pulse Resp B/P (MAP) Pulse Ox O2 Delivery O2 Flow Rate FiO2 07/07/24 05:00 97.6 57 18 104/56 (72) 98 97.6 07/06/24 20:00 Room Air* 0 21 Intake/Output Intake and Output 07/07/24 07:00 Intake Total 1950 ml Balance 1950 ml Intake Oral 1750 ml IV Total 200 ml # Voids 8 # Bowel Movements 2 General Appearance: Alert, Oriented X3, Cooperative, mild distress (With gluteal pain) HEENT: Atraumatic Lungs: Clear to auscultation Cardiovascular: Regular rate Medications Current Medications Medications Dose Ordered Sig/Jimenez Route Start Time Stop Time Status Last Admin Dose Admin Ceftriaxone Sodium 50 ml @ 100 mls/hr DAILY@09 IV 07/01/24 09:00 07/06/24 09:47 100 MLS/HR Acetaminophen/ Hydrocodone Bitart 1 tab Q4HP PRN PO 07/01/24 03:15 07/07/24 01:55 1 TAB Temazepam 15 mg QHSP PRN PO 07/01/24 03:15 07/02/24 21:18 15 MG Ondansetron HCl 4 mg Q4HP PRN IV 07/01/24 03:15 Acetaminophen 650 mg Q6HP PRN PO 07/01/24 03:15 07/03/24 21:35 650 MG Morphine Sulfate 2 mg Q6HPRN PRN IV 07/01/24 03:15 07/05/24 02:08 2 MG Clindamycin Phosphate 50 ml @ 50 mls/hr Q8HR IV 07/01/24 14:00 07/07/24 05:19 50 MLS/HR Docusate Sodium 200 mg BID PO 07/01/24 22:00 07/06/24 21:50 200 MG Laboratory Results Laboratory Tests 07/02/24 06:12 07/06/24 11:24 Urinalysis Test 06/30/24 21:51 Urine Color Yellow (Yellow) Urine Clarity Clear (Clear) Urine pH 5.5 (5.0-9.0) Urine Specific [place] 1.030 (1.001-1.035) Urine Protein Negative (Negative) Urine Ketones Negative (Negative) Urine Blood Negative /uL (Negative) Urine Nitrite Negative (Negative) Urine Bilirubin Negative (Negative) Urine Urobilinogen Normal mg/dL (Negative) Urine Leukocyte Esterase Negative /uL (Negative) Urine RBC 1 /hpf (0 - 3) Urine Microscopic WBC 1 /HPF (0-3) Urine Squamous Epithelial Cells None seen /hpf (<5) Urine Bacteria None seen /hpf (None Seen) Urine Glucose Normal mg/dL (Normal) Microbiology Microbiology Date/Time Source Procedure Growth Status 07/05/24 07:50 Other Abscess Gram Stain - Final Resulted 07/05/24 07:50 Other Abscess Anaerobic Culture - Preliminary Resulted 07/05/24 07:50 Other Abscess Aerobic Culture - Preliminary Resulted 07/01/24 01:07 Blood Blood Culture - Final NO GROWTH AFTER 5 DAYS OF INCUBATION. Complete Labs and/or images reviewed: Labs reviewed by me, Image(s) reviewed by me Assessment/Plan Assessment/Plan Left gluteal abscess status post I&D by Dr De La Paz on 07/01/2024 and on 07/05/[address] Sneed, wound culture result pending Morbid obesity with BMI 43.9 Sepsis: Continue Rocephin and clindamycin Plan discussed with: Patient Date of Service: Jul 07, 2024 Billing Provider: OYUNG MOREL MD Common Visit Codes: [id number] INP/OBS CARE(HIGH) YOUNG MOREL MD Jul 07, 2024 08:32
[2024-07-07 09:00] VITALS: BP 103/61; PULSE 57; RESP 20; TEMP 97.7; O2SAT 99
--- NOTE | 2024-07-07 10:56 | DVHPN2 ---
Progress Note Date Seen: Jul 07, 2024 Medical Necessity Reason Pt with a Central, PICC or Fol: No Objective vital signs Vital Sign Date Time Temp Pulse Resp B/P (MAP) Pulse Ox O2 Delivery O2 Flow Rate FiO2 07/07/24 05:00 97.6 57 18 104/56 (72) 98 97.6 07/06/24 20:00 Room Air* 0 21 Total Intake and Output 07/06/24 07/06/24 07/07/24 15:00 23:00 07:00 Intake Total 50 ml 650 ml 1250 ml Balance 50 ml 650 ml 1250 ml medications Current Medications Medications Dose Ordered Sig/Jimenez Route Start Time Stop Time Status Last Admin Dose Admin Ceftriaxone Sodium 50 ml @ 100 mls/hr DAILY@09 IV 07/01/24 09:00 07/07/24 09:37 100 MLS/HR Acetaminophen/ Hydrocodone Bitart 1 tab Q4HP PRN PO 07/01/24 03:15 07/07/24 09:35 1 TAB Temazepam 15 mg QHSP PRN PO 07/01/24 03:15 07/02/24 21:18 15 MG Ondansetron HCl 4 mg Q4HP PRN IV 07/01/24 03:15 Acetaminophen 650 mg Q6HP PRN PO 07/01/24 03:15 07/03/24 21:35 650 MG Morphine Sulfate 2 mg Q6HPRN PRN IV 07/01/24 03:15 07/05/24 02:08 2 MG Clindamycin Phosphate 50 ml @ 50 mls/hr Q8HR IV 07/01/24 14:00 07/07/24 05:19 50 MLS/HR Docusate Sodium 200 mg BID PO 07/01/24 22:00 07/07/24 09:35 200 MG laboratory and microbiology Laboratory Tests 07/06/24 11:24 07/02/24 06:12 Test 07/02/24 06:12 Range/Units Serum Glucose 103 74-106 mg/dL Problem List/Assessment/Plan Problem List/Assessment/Plan 07/07/24 AFEBRILE, PACKING TOP BE REMOVED TODAY FOLLOWING WHICH HE NEEDS TO START SITZ BATHS, BID. ONCE AGAIN EXPLAINED TO PATIENT THAT PRESENCE OF FISTULA IS FREQUENTLY NOT EVIDENT TILL THE HEALING FROM THE ABSCESS IS COMPLETE. PATIENT HAS N OT BEEN WALKING, EXPLAINED IMPORTANCE OF AMBULATION. ONCE HE STARTS SITZ BATHS HE CAN BE DISCHARGED, SITZ BATHS TO CONTINUE AT HOME TWICE DAILY FOR AT LEAST 10 DAYS. iF DISCHARGED i NEED TO SEE HIM IN ONE WEEKS IN THE CLINIC Plan discussed with: Patient, Spouse Dietary Evaluation Review Comments: Follow a wt reducing diet and increase physical activities after d/c Expected Outcomes/Goals: gradual wt loss ANDRES WICK MD Jul 07, 2024 10:56
[2024-07-07 13:00] VITALS: BP 110/55; PULSE 82; RESP 20; TEMP 97.4; O2SAT 98
--- NOTE | 2024-07-07 13:44 | MEDREC ---
[facility] ASP Intervention Section I [facility] ASP Intervention: Deescalate AB based on CS (THE FINAL PREIRECTAL ABSCESS PUS CULTURE SHOWED KLEBSIELLA PNEUMONIAE SUSCEPTIBLE TO CEFTRIAXONE. PLEASE CONSIDER DISCONTINUING CLINDAMYCIN BASED ON CULTURE RESULT) SLADE LEROY [facility] Jul 07, 2024 13:44
[2024-07-07 17:00] VITALS: BP 112/68; PULSE 72; RESP 20; TEMP 97.8; O2SAT 98
[2024-07-07 21:00] VITALS: BP 131/72; PULSE 84; RESP 20; TEMP 98.1; O2SAT 98
[2024-07-08 01:00] VITALS: BP 125/67; PULSE 79; RESP 20; TEMP 98.2; O2SAT 98
[2024-07-08 05:00] VITALS: BP 120/60; PULSE 79; RESP 20; TEMP 98.2; O2SAT 98
--- NOTE | 2024-07-08 08:44 | DVHPN2 ---
Reviewed: Care Plan, H&P, Labs, Medications, Previous Orders, Radiology Changes from previous H/P or p: No Changes Objective Vitals Vital Signs Date Time Temp Pulse Resp B/P (MAP) Pulse Ox O2 Delivery O2 Flow Rate FiO2 07/08/24 05:00 98.2 79 20 120/60 (80) 98 98.2 07/07/24 20:00 Room Air* 0 21 Intake/Output Intake and Output 07/08/24 07:00 Intake Total 2800 ml Balance 2800 ml Intake Oral 2600 ml IV Total 200 ml # Voids 3 # Bowel Movements 2 General Appearance: Alert, Oriented X3, Cooperative, mild distress (With gluteal pain) HEENT: Atraumatic Lungs: Clear to auscultation Cardiovascular: Regular rate Medications Current Medications Medications Dose Ordered Sig/Jimenez Route Start Time Stop Time Status Last Admin Dose Admin Ceftriaxone Sodium 50 ml @ 100 mls/hr DAILY@09 IV 07/01/24 09:00 07/07/24 09:37 100 MLS/HR Acetaminophen/ Hydrocodone Bitart 1 tab Q4HP PRN PO 07/01/24 03:15 07/07/24 09:35 1 TAB Ondansetron HCl 4 mg Q4HP PRN IV 07/01/24 03:15 Acetaminophen 650 mg Q6HP PRN PO 07/01/24 03:15 07/03/24 21:35 650 MG Morphine Sulfate 2 mg Q6HPRN PRN IV 07/01/24 03:15 07/07/24 10:53 2 MG Clindamycin Phosphate 50 ml @ 50 mls/hr Q8HR IV 07/01/24 14:00 07/08/24 05:30 50 MLS/HR Docusate Sodium 200 mg BID PO 07/01/24 22:00 07/07/24 21:20 200 MG Laboratory Results Laboratory Tests 07/02/24 06:12 07/06/24 11:24 Urinalysis Test 06/30/24 21:51 Urine Color Yellow (Yellow) Urine Clarity Clear (Clear) Urine pH 5.5 (5.0-9.0) Urine Specific [place] 1.030 (1.001-1.035) Urine Protein Negative (Negative) Urine Ketones Negative (Negative) Urine Blood Negative /uL (Negative) Urine Nitrite Negative (Negative) Urine Bilirubin Negative (Negative) Urine Urobilinogen Normal mg/dL (Negative) Urine Leukocyte Esterase Negative /uL (Negative) Urine RBC 1 /hpf (0 - 3) Urine Microscopic WBC 1 /HPF (0-3) Urine Squamous Epithelial Cells None seen /hpf (<5) Urine Bacteria None seen /hpf (None Seen) Urine Glucose Normal mg/dL (Normal) Microbiology Microbiology Date/Time Source Procedure Growth Status 07/05/24 07:50 Other Abscess Gram Stain - Final Resulted 07/05/24 07:50 Other Abscess Anaerobic Culture - Preliminary Resulted 07/05/24 07:50 Aerobic Culture - Final Klebsiella pneumoniae Resulted 07/01/24 01:07 Blood Blood Culture - Final NO GROWTH AFTER 5 DAYS OF INCUBATION. Complete Labs and/or images reviewed: Labs reviewed by me, Image(s) reviewed by me Assessment/Plan Assessment/Plan Left gluteal abscess status post I&D by Dr De La Paz on 07/01/2024 and on 07/05/[address] Sneed, wound culture shows Klebsiella pneumoniae sensitive to Rocephin, DC clindamycin continue Rocephin Morbid obesity with BMI 43.9 Sepsis: Continue Rocephin Plan discussed with: Patient Date of Service: Jul 08, 2024 Billing Provider: YOUNG MOREL MD Common Visit Codes: [id number] INP/OBS CARE(HIGH) YOUNG MOREL MD Jul 08, 2024 08:44
[2024-07-08 09:00] VITALS: BP 121/72; PULSE 72; RESP 20; TEMP 97.6; O2SAT 96
[2024-07-08 13:00] VITALS: BP 129/96; PULSE 87; RESP 20; TEMP 97.7; O2SAT 97
[2024-07-08 17:00] VITALS: BP 120/58; PULSE 66; RESP 20; TEMP 97.6; O2SAT 96
[2024-07-08 21:00] VITALS: BP 139/66; PULSE 85; RESP 19; TEMP 98; O2SAT 96
[2024-07-09 01:06] VITALS: BP 126/69; PULSE 74; RESP 20; TEMP 98.3; O2SAT 97
[2024-07-09 05:00] VITALS: BP 124/63; PULSE 63; RESP 20; TEMP 97.8; O2SAT 100
[2024-07-09 09:00] VITALS: BP 102/58; PULSE 60; RESP 17; TEMP 98.4; O2SAT 99
[2024-07-09] MEDS ORDERED: CIPR-173 PO (09:17)
--- NOTE | 2024-07-09 09:22 | DVHDS2 ---
Discharge Summary Date of Admission Jul 01, 2024 at 01:38 Date of Discharge: Jul 09, 2024 Admitting Diagnosis Perirectal abscess Wounds: Perirectal abscess Labs/Diagnostic Data: Laboratory Results Test 07/06/24 11:24 07/04/24 06:24 07/04/24 06:08 07/02/24 06:12 White Blood Count 11.8 10^3/uL (4.4-10.8) Red Blood Count 4.98 10^6/uL (4.5-5.90) Hemoglobin 14.7 g/dL (13.5-17.5) Hematocrit 43.0 % (41.0-53.0) Mean Corpuscular Volume 86.3 fL (80.0-100.0) Mean Corpuscular Hemoglobin 29.6 pg (28.0-32.0) Mean Corpuscular Hemoglobin Concent 34.3 g/dL (32.0-36.0) Red Cell Distribution Width 12.8 % (11.8-14.3) Platelet Count 445 10^3/uL (140-450) Mean Platelet Volume 6.8 fL (6.9-10.8) Neutrophils (%) (Auto) 67.4 % (37.0-80.0) Lymphocytes (%) (Auto) 22.7 % (10.0-50.0) Monocytes (%) (Auto) 8.0 % (0.0-12.0) Eosinophils (%) (Auto) 1.3 % (0.0-7.0) Basophils (%) (Auto) 0.6 % (0.0-2.0) Neutrophils # (Auto) 8.0 10 ^3/uL (1.6-8.6) Lymphocytes # (Auto) 2.7 10 ^3/uL (0.4-5.4) Monocytes # (Auto) 0.9 10 ^3/uL (0-1.3) Eosinophils # (Auto) 0.2 10 ^3/uL (0-0.8) Basophils # (Auto) 0.1 10 ^3/uL (0-0.2) Nucleated Red Blood Cells 0.1 % Prothrombin Time 10.9 sec (9.3-11.8) Prothrombin Time INR 1.03 (0.9-1.15) Activated Partial Thromboplast Time 32.8 SEC (24.5-34.5) POC Glucose 111 mg/dl (70-106) Sodium Level 137 mmol/L (136-145) Potassium Level 3.8 mmol/L (3.5-5.1) Chloride Level 102 mmol/L (98-107) Carbon Dioxide Level 26 mmol/L (20-31) Anion Gap 9 (5-15) Blood Urea Nitrogen 12 mg/dL (9-23) Creatinine 0.93 mg/dL (0.700-1.30) Glomerular Filtration Rate Calc 118 mL/min (>90) BUN/Creatinine Ratio 12.9 (10.0-20.0) Serum Glucose 103 mg/dL (74-106) Calcium Level 9.6 mg/dL (8.7-10.4) Test 07/01/24 01:07 07/01/24 00:14 06/30/24 21:51 Lactic Acid Level 1.0 mmol/L (0.4-2.0) Total Bilirubin 0.3 mg/dL (0.2-1.0) Aspartate Amino Transferase (AST) 32 U/L (13-40) Alanine Aminotransferase (ALT) 91 U/L (7-40) Alkaline Phosphatase 123 U/L (46-116) Total Protein 7.7 g/dL (5.7-8.2) Albumin 4.9 g/dL (3.2-4.8) Urine Color Yellow (Yellow) Urine Clarity Clear (Clear) Urine pH 5.5 (5.0-9.0) Urine Specific [place] 1.030 (1.001-1.035) Urine Protein Negative (Negative) Urine Ketones Negative (Negative) Urine Blood Negative /uL (Negative) Urine Nitrite Negative (Negative) Urine Bilirubin Negative (Negative) Urine Urobilinogen Normal mg/dL (Negative) Urine Leukocyte Esterase Negative /uL (Negative) Urine RBC 1 /hpf (0 - 3) Urine Microscopic WBC 1 /HPF (0-3) Urine Squamous Epithelial Cells None seen /hpf (<5) Urine Bacteria None seen /hpf (None Seen) Urine Glucose Normal mg/dL (Normal) Other Laboratory Tests 07/06/24 11:24 07/02/24 06:12 Brief Hx & Hospital Course: 24-year-old male admitted for perirectal abscess underwent incision and drainage by Dr. Sneed postop patient is very comfortable no pain no fever. Wound cultures grew Klebsiella pneumoniae for urinary started on clindamycin changed to Rocephin. Discharged home on Cipro. Patient says he does not want any pain medication. He will follow up with discharge clinic and with Dr. Sneed in one week. Consults/Reason for consult Surgeon Dr. Sneed Operations or Procedures Incision and drainage of perirectal abscess by Dr. Sneed Condition at Discharge: Fair Final Diagnosis/Problems List Perirectal abscess status post I&D by Dr De La Paz on 07/01/2024 and on 07/05/[address] Sneed, wound culture shows Klebsiella pneumoniae sensitive to Rocephin, DC clindamycin continue Rocephin Morbid obesity with BMI 43.9 Sepsis resolved Discharge Disposition: Home Discharge Instruct/Medications Diet: Regular Activity: Light activity Follow Up/Referral: Follow up with discharge clinic in one week Follow up with surgeon Dr. Sneed in one week Medications: Cipro Transmitted to pharmacy 39 (Time taken for discharge summary 39 minutes) Discharge Statement: "Patient was advised to return to the ER or call 911 if any headaches, dizziness, shortness of breath, chest pain, abdominal pain, bleeding, fevers, or worsening of medical condition. Patient was counseled about treatment plan, medications, possible side effects, patientverbalized understanding. All questions were answered to the best of my ability. This discharge took greater then 30 minutes in planning, reviewing documentation, counseling the patient, and discussing with other team members." ASSESSMENT ASSESSMENT Hospital Course Uneventful Assessment Perirectal abscess status post I&D by Dr De La Paz on 07/01/2024 and on 07/05/[address] Sneed, wound culture shows Klebsiella pneumoniae sensitive to Rocephin, DC clindamycin continue Rocephin Morbid obesity with BMI 43.9 Sepsis resolved Date of Service: Jul 09, 2024 Billing Provider: YOUNG MOREL MD Common Visit Codes: [id number] DISCH DAY >30min YOUNG MOREL MD Jul 09, 2024 09:22
--- NOTE | 2024-07-09 09:30 | DVHPN2 ---
Subjective Date Seen: Jul 09, 2024 Post op day Post op day: 4 Patient reports: No new complaints, Feels better Nursing reports: No new complaints General: Normal HNT: Normal Cardiovascular: Normal Respiratory: Normal Gastrointestinal: Normal Genitourinary: Normal Musculoskeletal: Normal Neurological: Normal Objective Vitals Vital Sign Date Time Temp Pulse Resp B/P (MAP) Pulse Ox O2 Delivery O2 Flow Rate FiO2 07/09/24 08:00 Room Air* 0 21 07/09/24 05:00 97.8 63 20 124/63 (83) 100 97.8 Total Intake and Output 07/08/24 07/08/24 07/09/24 15:00 23:00 07:00 Intake Total 200 ml 1650 ml 450 ml Output Total 4 ml Balance 200 ml 1646 ml 450 ml Medications Current Medications Medications Dose Ordered Sig/Jimenez Route Start Time Stop Time Status Last Admin Dose Admin Ceftriaxone Sodium 50 ml @ 100 mls/hr DAILY@09 IV 07/01/24 09:00 07/09/24 09:03 100 MLS/HR Acetaminophen/ Hydrocodone Bitart 1 tab Q4HP PRN PO 07/01/24 03:15 07/07/24 09:35 1 TAB Ondansetron HCl 4 mg Q4HP PRN IV 07/01/24 03:15 Acetaminophen 650 mg Q6HP PRN PO 07/01/24 03:15 07/03/24 21:35 650 MG Morphine Sulfate 2 mg Q6HPRN PRN IV 07/01/24 03:15 07/07/24 10:53 2 MG Docusate Sodium 200 mg BID PO 07/01/24 22:00 07/09/24 09:03 200 MG General: Normal, Well developed, Well nourished Head/Eyes: Normal ENT: Normal Neck: Normal Abdominal: Normal, Soft, Normal inspection Musculoskeletal: Normal Extremities: Normal Skin: Other (buttock abscess) Labs and Microbiology Laboratory Tests 07/06/24 11:24 07/02/24 06:12 Test 07/02/24 06:12 Range/Units Serum Glucose 103 74-106 mg/dL Ass/Plan Labs and/or images reviewed: Labs reviewed by me, Image(s) reviewed by me Problem List 07/07/24 AFEBRILE, PACKING TOP BE REMOVED TODAY FOLLOWING WHICH HE NEEDS TO START SITZ BATHS, BID. ONCE AGAIN EXPLAINED TO PATIENT THAT PRESENCE OF FISTULA IS FREQUENTLY NOT EVIDENT TILL THE HEALING FROM THE ABSCESS IS COMPLETE. PATIENT HAS N OT BEEN WALKING, EXPLAINED IMPORTANCE OF AMBULATION. ONCE HE STARTS SITZ BATHS HE CAN BE DISCHARGED, SITZ BATHS TO CONTINUE AT HOME TWICE DAILY FOR AT LEAST 10 DAYS. iF DISCHARGED i NEED TO SEE HIM IN ONE WEEKS IN THE CLINIC Problems(with codes): (1) Abscess of anal and rectal regions Assessment/Plan review of MRI with Dr. Sneed and physical exam abscess seen on MRI , labs reviewed patient buttock area tender to palpation , no drainage noted patient states very painful with walking and sitting, feels better than when he came to hospital Plan: NPO drainage of abscess tomorrow am continue IV antibiotics 07/09/2024 patient s/p incision and drainage of perianal abscess discharge continue with sitz baths follow up in clinic in 7-10 days Prognosis: Excellent Plan discussed with patient Visit Coding Surgery Date of Service if different f: Jul 09, 2024 Billing Provider: ANDRES SNEED MD Surgery Visit Codes: [id number] INP/OBS CARE(HIGH) [place] [employer] Jul 09, 2024 09:30
[2024-07-09 11:19] VITALS: BP 102/58; PULSE 60; RESP 17; TEMP 98.4; O2SAT 99
== END 2024-07-09 12:50 | disposition home or self-care (01) | DRG 853 ==
LOC: ER 19:50 → OVERFLOW 07-01 01:38 → CENTRAL 07-01 03:39
PROVIDERS: ADMIT Family Medicine; ATTEND Family Medicine
PROC: 0D9P0ZZ Drainage of Rectum, Open Approach (ICD-10-PCS; principal; 2024-07-01 14:11)
PROC: 0D9P0ZZ Drainage of Rectum, Open Approach (ICD-10-PCS; 2024-07-05)
DX: A41.9 Sepsis, unspecified organism (principal); J15.0 Pneumonia due to Klebsiella pneumoniae; K61.2 Anorectal abscess; L02.31 Cutaneous abscess of buttock; Z68.41 Body mass index [BMI] 40.0-44.9, adult; E66.01 Morbid (severe) obesity due to excess calories; R74.01 Elevation of levels of liver transaminase levels
CPT/HCPCS: 36415; 72192; 72193; 73723; 76870; 80048; 80053; 81001; 82962; 83605; 85025; 85610; 85730; 86850; 86900; 86901; 87040; 87070; 87075; 87076; 87077; 87186; 87205; 96372; G0378; J0131; J0330; J0690; J1100; J1885; J2405; J2704; J3490